=== PATIENT | female | born 1995 | race Caucasian/White ===

== ENCOUNTER 2017-07-09 21:01 | Outpatient (CLI) | payer BC | END 2017-07-10 07:09 | disposition home or self-care (01) | LOC: SLEEP 21:01 | PROVIDERS: ATTEND Registered Nurse | DX: G47.10 Hypersomnia, unspecified (principal); R06.83 Snoring; M79.671 Pain in right foot; M79.672 Pain in left foot; R53.83 Other fatigue | CPT/HCPCS: 95810 ==

== ENCOUNTER 2021-01-03 15:05 | Emergency (ER) | payer BC ==
[~2021-01-03] VITALS: Ht 175 cm; Wt 100.0 kg
[2021-01-03] MEDS ORDERED: LACTATED RINGERS 1,000 ML IV ONE ×2 (15:17→16:50)
--- NOTE | 2021-01-03 15:39 | ED Cough/URI ---
General Chief Complaint: General Problems/Pain Stated Complaint: COUGH/SOB/HEADACHE Source: patient Exam Limitations: no limitations History of Present Illness Date Seen by Provider: January 03, 2021 Time Seen by Provider: 15:15 Initial Comments Patient presents ER by private conveyance with chief complaint of cough, shortness of breath, body aches and malaise. She had her second dose of mode during vaccination December 06. She has no sick contacts no recent travel outside the [facility]. She has a sore throat. Her cough is nonproductive. No vomiting nausea or diarrhea. No fevers. She is been using multiple ezzp-fqk-nffnkgt medications without success. She has not had any today. She denies using any decongestants with pseudoephedrine or phenylephrine. She went to Dr. Calles's office and saw one of the practitioners who noted her heart rate was elevated a couple days ago and other than her scheduled medications she has not taking anything presently. She is not on antibiotics or steroids. She did not receive any particular testing that day. She denies smoking or using recreational drugs or stimulants. Allergies and Home Medications Allergies Coded Allergies: No Known Drug Allergies (Unverified , 01/03/21) Home Medications Albuterol Sulfate 1 Puff Puff, 2 PUFF IH Q4H PRN for COUGH 1 PUFF = 90 MCG Prescribed by: DOROTHEA HILLMAN on 01/03/21 9532 Patient Home Medication List Home Medication List Reviewed: Yes Review of Systems Review of Systems Constitutional: No chills, No diaphoresis EENTM: No ear discharge, No ear pain, No blurred vision Respiratory: No cough, No phlegm Gastrointestinal: No abdominal pain, No constipation, No diarrhea, No vomiting Genitourinary: No discharge, No dysuria Musculoskeletal: No back pain, No joint pain All Other Systems Reviewed Negative Unless Noted: Yes Past Jmxajif-Lqtuid-Jhyspm Hx Patient Social History Alcohol Use: Denies Use Smoking Status: Never a Smoker Physical Exam Vital Signs - First Documented 01/03/21 15:13 Temp 36.2 Pulse 142 Resp 22 B/P (MAP) 146/103 (117) Pulse Ox 100 Capillary Refill : Height: '" Weight: lbs. oz. kg; BMI Method: General Appearance: WD/WN, no apparent distress Eyes: Bilateral Eye Normal Inspection, Bilateral Eye PERRL, Bilateral Eye EOMI HEENT: PERRL/EOMI, TMs normal, pharynx normal Neck: full range of motion, normal inspection Respiratory: lungs clear, normal breath sounds, no respiratory distress, no accessory muscle use Cardiovascular: normal peripheral pulses, regular rate, rhythm, tachycardia Extremities: normal range of motion, non-tender, normal capillary refill Neurologic/Psychiatric: alert, oriented x 3 Skin: normal color, warm/dry Progress/Results/Core Measures Suspected Sepsis SIRS Temperature: Pulse: Respiratory Rate: Laboratory Tests 01/03/21 15:26: White Blood Count 10.8 Blood Pressure / Mean: Laboratory Tests 01/03/21 15:26: Creatinine 0.85, Platelet Count 344, Total Bilirubin 0.3 Results/Orders Lab Results Laboratory Tests Test 01/03/21 15:20 01/03/21 15:26 01/03/21 16:15 Range/Units SARS-CoV-2 RNA (RT-PCR) Not Detected Not Detecte White Blood Count 10.8 4.3-11.0 10^3/uL Red Blood Count 5.09 3.80-5.11 10^6/uL Hemoglobin 12.9 11.5-16.0 g/dL Hematocrit 42 35-52 % Mean Corpuscular Volume 83 80-99 fL Mean Corpuscular Hemoglobin 25 25-34 pg Mean Corpuscular Hemoglobin Concent 31 L 32-36 g/dL Red Cell Distribution Width 14.3 10.0-14.5 % Platelet Count 344 130-400 10^3/uL Mean Platelet Volume 10.1 9.0-12.2 fL Immature Granulocyte % (Auto) 0 % Neutrophils (%) (Auto) 59 42-75 % Lymphocytes (%) (Auto) 30 12-44 % Monocytes (%) (Auto) 7 0-12 % Eosinophils (%) (Auto) 4 0-10 % Basophils (%) (Auto) 1 0-10 % Neutrophils # (Auto) 6.4 1.8-7.8 10^3/uL Lymphocytes # (Auto) 3.3 1.0-4.0 10^3/uL Monocytes # (Auto) 0.7 0.0-1.0 10^3/uL Eosinophils # (Auto) 0.4 H 0.0-0.3 10^3/uL Basophils # (Auto) 0.1 0.0-0.1 10^3/uL Immature Granulocyte # (Auto) 0.0 0.0-0.1 10^3/uL Sodium Level 140 135-145 MMOL/L Potassium Level 3.7 3.6-5.0 MMOL/L Chloride Level 107 98-107 MMOL/L Carbon Dioxide Level 22 21-32 MMOL/L Anion Gap 11 5-14 MMOL/L Blood Urea Nitrogen 12 7-18 MG/DL Creatinine 0.85 0.60-1.30 MG/DL Estimat Glomerular Filtration Rate > 60 BUN/Creatinine Ratio 14 Glucose Level 90 70-105 MG/DL Calcium Level 9.3 8.5-10.1 MG/DL Corrected Calcium 9.3 8.5-10.1 MG/DL Total Bilirubin 0.3 0.1-1.0 MG/DL Aspartate Amino Transf (AST/SGOT) 15 5-34 U/L Alanine Aminotransferase (ALT/SGPT) 17 0-55 U/L Alkaline Phosphatase 82 40-136 U/L C-Reactive Protein High Sensitivity 0.66 H 0.00-0.50 MG/DL Total Protein 8.1 6.4-8.2 GM/DL Albumin 4.0 3.2-4.5 GM/DL Urine Color YELLOW Urine Clarity CLEAR Urine pH 5.5 5-9 Urine Specific [place] >=1.030 1.016-1.022 Urine Protein NEGATIVE NEGATIVE Urine Glucose (UA) NEGATIVE NEGATIVE Urine Ketones NEGATIVE NEGATIVE Urine Nitrite NEGATIVE NEGATIVE Urine Bilirubin NEGATIVE NEGATIVE Urine Urobilinogen 0.2 < = 1.0 MG/DL Urine Leukocyte Esterase TRACE H NEGATIVE Urine RBC (Auto) NEGATIVE NEGATIVE Urine RBC 2-5 H /HPF Urine WBC 2-5 /HPF Urine Squamous Epithelial Cells 5-10 /HPF Urine Crystals NONE /LPF Urine Bacteria FEW H /HPF Urine Casts NONE /LPF Urine Mucus NEGATIVE /LPF Urine Culture Indicated YES Urine Opiates Screen NEGATIVE NEGATIVE Urine Oxycodone Screen NEGATIVE NEGATIVE Urine Methadone Screen NEGATIVE NEGATIVE Urine Propoxyphene Screen NEGATIVE NEGATIVE Urine Barbiturates Screen NEGATIVE NEGATIVE Ur Tricyclic Antidepressants Screen POSITIVE H NEGATIVE Urine Phencyclidine Screen NEGATIVE NEGATIVE Urine Amphetamines Screen NEGATIVE NEGATIVE Urine Methamphetamines Screen NEGATIVE NEGATIVE Urine Benzodiazepines Screen NEGATIVE NEGATIVE Urine Cocaine Screen NEGATIVE NEGATIVE Urine Cannabinoids Screen NEGATIVE NEGATIVE Micro Results Microbiology 01/03/21 Influenza Types A,B Antigen (PEBBLES) - Final, Complete My Orders Orders - KADY,DOROTHEA J Lactated Ringers (Lr 1000 Ml Iv Solution (01/03/21 15:17) Covid 19 Inhouse Test (01/03/21 15:21) Influenza A And B Antigens (01/03/21 15:21) Chest 1 View, Ap/Pa Only (01/03/21 15:21) Cbc With Automated Diff (01/03/21 15:21) Comprehensive Metabolic Panel (01/03/21 15:21) Hs C Reactive Protein (01/03/21 15:21) Ua Culture If Indicated (01/03/21 15:21) Urine Bedside (01/03/21 15:21) Ed Iv/Invasive Line Start (01/03/21 15:21) Drug Screen Stat (Urine) (01/03/21 15:39) Urine Culture (01/03/21 16:15) Lactated Ringers (Lr 1000 Ml Iv Solution (01/03/21 16:50) Medications Given in ED Current Medications Medications Dose Ordered Sig/Amairani Route Start Time Stop Time Status Last Admin Dose Admin Lactated Ringer's 1,000 ml @ ud STK-MED ONCE IV 01/03/21 15:17 01/03/21 15:26 DC 01/03/21 15:35 1,000 MLS/HR Lactated Ringer's 1,000 ml @ ud STK-MED ONCE IV 01/03/21 16:50 01/03/21 16:58 DC 01/03/21 17:01 1,000 MLS/HR Vital Signs/I&O 01/03/21 15:13 Temp 36.2 Pulse 142 Resp 22 B/P (MAP) 146/103 (117) Pulse Ox 100 Capillary Refill : Progress Note #1: Time: 15:38 Progress Note Because of her persistent tachycardia 6 days from start and she looks little dry we will check some fluids go ahead and check her for COVID-19 and influenza. Chest x-ray and basic labs. She denies use of stimulants so we will do a drug screen just to rule out that as a source of her persistent tachycardia. Progress Note #2: Time: 16:45 Progress Note Patient's heart rate is down to 103 and she is resting peacefully. She has received her fluids. Were going to allow her to go home with a nonspecific viral infection and return precautions. Diagnostic Imaging Diagonstic Imaging: Xray Plain Films/CT/US/NM/MRI: chest Comments NAME: ALBERTA GALEANA [facility] REC#: [id number] PT STATUS: REG ER : 1995 PHYSICIAN: DOROTHEA HILLMAN MD ADMIT DATE: 01/03/21/ER Signed Date of Exam:01/03/21 CHEST 1 VIEW, AP/PA ONLY EXAMINATION: Chest 1 view HISTORY: Cough and shortness breath COMPARISON: None available. FINDINGS: The lungs are clear without edema or pneumonia. No pleural effusion or pneumothorax. Heart size is normal. IMPRESSION: 1. Clear lungs. Dictated by: Dictated on workstation # [id number] Dict: 01/03/211627 Trans: 01/03/211628 [facility] [id number] Interpreted by: JOSÉ LANDRY MD Electronically signed by: JOSÉ LANDRY MD 01/03/21 1629 Reviewed: Reviewed by Me Departure Impression Primary Impression: Viral upper respiratory tract infection Additional Impression: Mild dehydration Disposition: 01 HOME, SELF-CARE Condition: Stable Departure-Patient Inst. Decision time for Depature: 16:46 Referrals: NO,LOCAL PHYSICIAN (PCP/Family) Primary Care Physician Patient Instructions: Dehydration, Adult ED, Viral Upper Respiratory Infection, Adult (DC) Add. Discharge Instructions: Drink plenty of fluids. Tea with honey and lemon can be helpful for your sore throat. Salt water gargles can be helpful for sore throat. Avoid medications with phenylephrine or pseudoephedrine as this may increase your heart rate. Expect symptoms to resolve over the next 3 to 5 days. If you are still having symptoms he can follow-up with your primary care doctor for reevaluation. Return to the ER promptly if you are having severe shortness of air or other worrisome symptoms. If having coughing fits, shortness of air or wheezing you can do 2 puffs of ProAir/albuterol through the spacer every 4 hours as necessary. All discharge instructions reviewed with patient and/or family. Voiced understanding. Scripts Albuterol Sulfate (PROAIR HFA) 1 Puff Puff 2 PUFF IH Q4H PRN for COUGH, #1 EA 0 Refills 1 PUFF = 90 MCG Prov: DOROTHEA HILLMAN 01/03/21 Work/School Note: Work Release Form Date Seen in the Emergency Department: January 03, 2021 Return to Work: January 07, 2021 Restrictions: No Restrictions Other Restrictions Listed Below: May return to work when symptom-free for 24 hours DOROTHEA HILLMAN January 03, 2021 15:39
[2021-01-03 15:46] LABS: BASOPHILS # (AUTO) 0.1 10^3/uL (0.0-0.1); BASOPHILS % (AUTO) 1 % (0-10); EOSINOPHILS # (AUTO) 0.4 10^3/uL (0.0-0.3); EOSINOPHILS % (AUTO) 4 % (0-10); HEMATOCRIT 42 % (35-52); HEMOGLOBIN 12.9 g/dL (11.5-16.0); LYMPHOCYTES # (AUTO) 3.3 10^3/uL (1.0-4.0); LYMPHOCYTES % (AUTO) 30 % (12-44); MEAN CORPUSCULAR HEMOGLOBIN 25 pg (25-34); MEAN CORPUSCULAR HGB CONC 31 g/dL (32-36); MEAN CORPUSCULAR VOLUME 83 fL (80-99); MEAN PLATELET VOLUME 10.1 fL (9.0-12.2); MONOCYTES # (AUTO) 0.7 10^3/uL (0.0-1.0); MONOCYTES % (AUTO) 7 % (0-12); NEUTROPHILS # (AUTO) 6.4 10^3/uL (1.8-7.8); NEUTROPHILS % (AUTO) 59 % (42-75); PLATELET COUNT 344 10^3/uL (130-400); WHITE BLOOD COUNT 10.8 10^3/uL (4.3-11.0)
[2021-01-03 15:58] LABS: CHLORIDE 107 MMOL/L (98-107); POTASSIUM 3.7 MMOL/L (3.6-5.0); SODIUM 140 MMOL/L (135-145)
[2021-01-03 15:59] LABS: CALCIUM 9.3 MG/DL (8.5-10.1)
[2021-01-03 16:00] LABS: GLUCOSE 90 MG/DL (70-105)
[2021-01-03 16:01] LABS: TOTAL PROTEIN 8.1 GM/DL (6.4-8.2)
[2021-01-03 16:02] LABS: BILIRUBIN,TOTAL 0.3 MG/DL (0.1-1.0); CARBON DIOXIDE 22 MMOL/L (21-32)
[2021-01-03 16:04] LABS: ALKALINE PHOSPHATASE 82 U/L (40-136); CREATININE SERUM 0.85 MG/DL (0.60-1.30); GFR ESTIMATED > 60
[2021-01-03 16:05] LABS: BUN/CREATININE RATIO 14
[2021-01-03 16:07] LABS: ALANINE AMINOTRANSFERASE 17 U/L (0-55)
[2021-01-03 16:24] LABS: BILIRUBIN,URINE NEGATIVE (NEGATIVE); CLARITY,URINE CLEAR; COLOR,URINE YELLOW; GLUCOSE, URINE (UA) NEGATIVE (NEGATIVE); KETONES,URINE NEGATIVE (NEGATIVE); LEUKOCYTE ESTERASE ,URINE TRACE (NEGATIVE); NITRITE,URINE NEGATIVE (NEGATIVE); PH,URINE 5.5 (5-9); PROTEIN,URINE NEGATIVE (NEGATIVE)
--- NOTE | 2021-01-03 16:30 | Diagnostic Imaging Report ---
EXAMINATION: Chest 1 view HISTORY: Cough and shortness breath COMPARISON: None available. FINDINGS: The lungs are clear without edema or pneumonia. No pleural effusion or pneumothorax. Heart size is normal. IMPRESSION: 1. Clear lungs. Dictated by: Dictated on workstation # [id number]
[2021-01-03 16:32] LABS: BACTERIA,URINE FEW /HPF
[2021-01-03 16:36] LABS: AMPHETAMINE SCREEN, URINE NEGATIVE (NEGATIVE); BARBITURATE SCREEN URINE NEGATIVE (NEGATIVE); BENZODIAZEPINES SCREEN URINE NEGATIVE (NEGATIVE); CANNABINOID SCREEN, URINE NEGATIVE (NEGATIVE); COCAINE SCREEN URINE NEGATIVE (NEGATIVE); METHADONE STAT NEGATIVE (NEGATIVE); METHAMPHETAMINE SCREEN URINE S NEGATIVE (NEGATIVE); OPIATE SCREEN URINE NEGATIVE (NEGATIVE); OXYCODONE STAT NEGATIVE (NEGATIVE); PROPOXYPHENE STAT NEGATIVE (NEGATIVE); TRICYCLIC ANTIDEPRESSANTS SCRE POSITIVE (NEGATIVE)
[2021-01-03] MEDS ORDERED: RT-ALBUINH IH (16:55)
[2021-01-03 18:06] VITALS: BP 140/88
== END 2021-01-03 18:25 | disposition home or self-care (01) ==
LOC: EDUNIT# 15:05 → ER 15:06
DX: J06.9 Acute upper respiratory infection, unspecified (principal); E86.0 Dehydration; R00.0 Tachycardia, unspecified
CPT/HCPCS: 36415; 71045; 80053; 80306; 81000; 84703; 85025; 86141; 87088; 87636; 87804

== ENCOUNTER → 2021-08-19 | Outpatient (CLI) | payer BC ==
[~2021-08-19] MED LIST: RT-ALBUINH IH
--- NOTE | 2021-08-19 15:14 | Diagnostic Imaging Report ---
INDICATION: Bilateral flank pain. COMPARISON: None. FINDINGS: A single frontal supine radiographic view of the abdomen was obtained and demonstrates nondistended loops of small bowel. There is no large collection of free intraperitoneal air. No unexpected extraosseous calcifications or radiopaque foreign bodies are seen. The osseous structures show age-related degenerative changes. IMPRESSION: Nonobstructed small bowel gas pattern. Dictated by: Dictated on workstation # [id number]
== END ==
LOC: RAD 14:42
PROVIDERS: ATTEND Family Medicine
DX: R10.9 Unspecified abdominal pain (principal); R31.9 Hematuria, unspecified
CPT/HCPCS: 74018

== ENCOUNTER → 2021-08-20 | Outpatient (CLI) | payer BC ==
--- NOTE | 2021-08-20 13:26 | Diagnostic Imaging Report ---
EXAMINATION: CT abdomen and pelvis without contrast. TECHNIQUE: Multiple contiguous axial images were obtained through the abdomen and pelvis without the use of intravenous contrast. All CT scans use one or more of the following dose optimizing techniques: automated exposure control, MA and/or KvP adjustment based on patient size and exam type or iterative reconstruction. HISTORY: Hematuria and flank pain. COMPARISON: None available. FINDINGS: Limited views of the lower thorax are unremarkable. The liver is normal without focal lesion. There is no biliary ductal dilation. Gallbladder is normal. Pancreas is normal. Spleen is normal. Adrenal glands are normal. There are a few nonobstructing 2 mm stones in the right kidney. No ureteral stones. No suspicious renal lesions. There is no hydronephrosis. Urinary bladder is normal. There is a right adnexal cyst measuring less than 3 cm. Bowel is normal in caliber without obstruction or inflammation. No free fluid or air. No abdominal or pelvic lymphadenopathy. Aorta is normal in caliber without aneurysm. There are no suspicious osseus lesions. IMPRESSION: There are two nonobstructing 2 mm stones in the right kidney. No ureteral stones. Dictated by: Dictated on workstation # [id number]
== END ==
LOC: RAD 13:00
PROVIDERS: ATTEND Nurse Practitioner Family
DX: N20.0 Calculus of kidney (principal)
CPT/HCPCS: 74176

== ENCOUNTER → 2021-08-22 | Outpatient (CLI) | payer BC ==
--- NOTE | 2021-08-22 13:36 | Diagnostic Imaging Report ---
EXAMINATION: Abdomen 1 view HISTORY: FLANK PAIN HEMATURIA COMPARISON: None available. FINDINGS: There is a moderate amount of gas and stool throughout the colon. Nonobstructive bowel gas pattern. No radiopaque foreign body. The lung bases are clear. The osseous structures are intact. IMPRESSION: Moderate stool burden without other acute abnormality in the abdomen. Dictated by: Dictated on workstation # [id number]
== END ==
LOC: RAD 12:33
PROVIDERS: ATTEND Family Medicine
DX: R31.9 Hematuria, unspecified (principal); R10.9 Unspecified abdominal pain
CPT/HCPCS: 74018

== ENCOUNTER 2022-01-20 10:11 | Emergency (ER) | payer BC ==
[~2022-01-20] VITALS: Ht 170.2 cm; Wt 113.4 kg
--- NOTE | 2022-01-20 10:51 | ED GU-Female ---
General Chief Complaint: - Reproductive Stated Complaint: BACK PAIN Source: patient Exam Limitations: no limitations History of Present Illness Date Seen by Provider: January 20, 2022 Time Seen by Provider: 10:49 Initial Comments To ER by private vehicle with reports of sudden onset of right flank pain that began around 7 or 730 this morning. History of kidney stones. She did have some nausea initially. Timing/Duration: this morning Severity/Quality: moderate, severe Location: right flank Radiation: none Activities at Onset: none Prior Genitourinary Problems: none Associated Symptoms: denies symptoms Allergies and Home Medications Allergies Coded Allergies: oxycodone (Verified Allergy, Unknown, 01/20/22) Patient Home Medication List Home Medication List Reviewed: Yes Albuterol Sulfate (Proair Hfa) 1 Puff Puff, 2 PUFF IH Q4H PRN for COUGH Prescribed by: DOROTHEA HILLMAN on 01/03/21 1655 Review of Systems Review of Systems Constitutional: see HPI; No chills, No fever EENTM: see HPI Respiratory: no symptoms reported Cardiovascular: no symptoms reported Genitourinary: see HPI Musculoskeletal: no symptoms reported Skin: no symptoms reported Psychiatric/Neurological: No Symptoms Reported Endocrine: No Symptoms Reported Past Xapexip-Xidhac-Edmakx Hx Seasonal Allergies Seasonal Allergies: No Past Medical History Surgeries: Yes Adenoidectomy, Orthopedic, Tonsillectomy Respiratory: No Cardiac: No Neurological: No Genitourinary: No Gastrointestinal: Yes Gastroesophageal Reflux Musculoskeletal: No Endocrine: No HEENT: No Cancer: No Depression Integumentary: No Physical Exam Vital Signs Vital Signs - First Documented 01/20/22 10:40 Temp 36.9 Pulse 93 Resp 16 B/P (MAP) 157/94 (115) Pulse Ox 99 O2 Delivery Room Air Capillary Refill : Height, Weight, BMI Height: '" Weight: lbs. oz. kg; 32.00 BMI Method: General Appearance: WD/WN, no apparent distress, obese Neck: non-tender, full range of motion Respiratory: no respiratory distress, no accessory muscle use Gastrointestinal: normal bowel sounds, non tender, soft Back: CVA tenderness (R) Extremities: normal range of motion, non-tender Neurologic/Psychiatric: alert, normal mood/affect, oriented x 3 Skin: normal color, warm/dry Progress/Results/Core Measures Suspected Sepsis SIRS Temperature: Pulse: Respiratory Rate: Laboratory Tests 01/20/22 11:05: White Blood Count 12.1H Blood Pressure / Mean: Laboratory Tests 01/20/22 11:05: Creatinine 0.81, Platelet Count 349, Total Bilirubin 0.3 Results/Orders Lab Results Laboratory Tests Test 01/20/22 11:05 01/20/22 11:40 Range/Units White Blood Count 12.1 H 4.3-11.0 10^3/uL Red Blood Count 5.37 H 3.80-5.11 10^6/uL Hemoglobin 13.6 11.5-16.0 g/dL Hematocrit 44 35-52 % Mean Corpuscular Volume 81 80-99 fL Mean Corpuscular Hemoglobin 25 25-34 pg Mean Corpuscular Hemoglobin Concent 31 L 32-36 g/dL Red Cell Distribution Width 14.6 H 10.0-14.5 % Platelet Count 349 130-400 10^3/uL Mean Platelet Volume 9.4 9.0-12.2 fL Immature Granulocyte % (Auto) 1 % Neutrophils (%) (Auto) 79 H 42-75 % Lymphocytes (%) (Auto) 15 12-44 % Monocytes (%) (Auto) 5 0-12 % Eosinophils (%) (Auto) 1 0-10 % Basophils (%) (Auto) 0 0-10 % Neutrophils # (Auto) 9.5 H 1.8-7.8 10^3/uL Lymphocytes # (Auto) 1.9 1.0-4.0 10^3/uL Monocytes # (Auto) 0.6 0.0-1.0 10^3/uL Eosinophils # (Auto) 0.1 0.0-0.3 10^3/uL Basophils # (Auto) 0.0 0.0-0.1 10^3/uL Immature Granulocyte # (Auto) 0.1 0.0-0.1 10^3/uL Sodium Level 138 135-145 MMOL/L Potassium Level 4.6 3.6-5.0 MMOL/L Chloride Level 107 98-107 MMOL/L Carbon Dioxide Level 19 L 21-32 MMOL/L Anion Gap 12 5-14 MMOL/L Blood Urea Nitrogen 11 7-18 MG/DL Creatinine 0.81 0.60-1.30 MG/DL Estimat Glomerular Filtration Rate 101 BUN/Creatinine Ratio 14 Glucose Level 102 70-105 MG/DL Calcium Level 9.7 8.5-10.1 MG/DL Corrected Calcium 9.5 8.5-10.1 MG/DL Total Bilirubin 0.3 0.1-1.0 MG/DL Aspartate Amino Transf (AST/SGOT) 12 5-34 U/L Alanine Aminotransferase (ALT/SGPT) 15 0-55 U/L Alkaline Phosphatase 74 40-136 U/L Total Protein 8.2 6.4-8.2 GM/DL Albumin 4.2 3.2-4.5 GM/DL Serum Test, Qualitative NEGATIVE NEGATIVE Urine Color ORANGE Urine Clarity CLEAR Urine pH 5.5 5-9 Urine Specific [place] 1.020 1.016-1.022 Urine Protein 1+ H NEGATIVE Urine Glucose (UA) TRACE H NEGATIVE Urine Ketones NEGATIVE NEGATIVE Urine Nitrite POSITIVE H NEGATIVE Urine Bilirubin NEGATIVE NEGATIVE Urine Urobilinogen 1.0 < = 1.0 MG/DL Urine Leukocyte Esterase TRACE H NEGATIVE Urine RBC (Auto) 3+ H NEGATIVE Urine RBC 10-25 H /HPF Urine WBC 0-2 /HPF Urine Squamous Epithelial Cells 5-10 /HPF Urine Crystals NONE /LPF Urine Bacteria FEW H /HPF Urine Casts NONE /LPF Urine Mucus SMALL H /LPF Urine Culture Indicated YES My Orders Orders - PRESLEY JULIO APRN Abdomen/Kub 1view (01/20/22 10:46) Ct Abd/Pelvis Wo(Kidney Stone) (01/20/22 10:46) Cbc With Automated Diff (01/20/22 10:46) Comprehensive Metabolic Panel (01/20/22 10:46) Ed Iv/Invasive Line Start (01/20/22 10:46) Hcg,Qualitative Serum (01/20/22 10:46) Ketorolac Injection (Toradol Injection) (01/20/22 11:00) Ondansetron Injection (Zofran Injectio (01/20/22 11:00) Ua Culture If Indicated (01/20/22 11:14) Fentanyl Inj (Sublimaze Injection) (01/20/22 12:00) Urine Culture (01/20/22 11:40) Us Non Ob Pelvis Comp/Transvag (01/20/22 11:46) Medications Given in ED Current Medications Medications Dose Ordered Sig/Amairani Route Start Time Stop Time Status Last Admin Dose Admin Fentanyl Citrate 50 mcg ONCE ONCE IVP 01/20/22 12:00 01/20/22 12:01 DC 01/20/22 12:00 50 MCG Ketorolac Tromethamine 15 mg ONCE ONCE IVP 01/20/22 11:00 01/20/22 11:01 DC 01/20/22 11:05 15 MG Ondansetron HCl 8 mg ONCE ONCE IVP 01/20/22 11:00 01/20/22 11:01 DC 01/20/22 11:04 8 MG Vital Signs/I&O 01/20/22 10:40 Temp 36.9 Pulse 93 Resp 16 B/P (MAP) 157/94 (115) Pulse Ox 99 O2 Delivery Room Air Capillary Refill : Departure Impression Primary Impression: Right ovarian cyst Disposition: HOME, SELF-CARE Condition: Stable Departure-Patient Inst. Decision time for Depature: 10:51 Referrals: LOLIS CALLES MD (PCP/Family) Primary Care Physician Patient Instructions: Kidney Stone, Adult ED Add. Discharge Instructions: Pain medication as needed in the meantime. Follow-up with Dr. Calles next week. Return to ER for any worsening pain. All discharge instructions reviewed with patient and/or family. Voiced understanding. PRESLEY JULIO APRN January 20, 2022 10:51
[2022-01-20] MEDS ORDERED: ONDANSETRON 4 MG/2 ML (SDV) Z0FRAN IVP ONE (11:00)
[2022-01-20] MEDS ORDERED: KETOROLAC 30 MG/ML VIAL IVP ONE (11:00)
[2022-01-20 11:11] LABS: BASOPHILS % (AUTO) 0 % (0-10); EOSINOPHILS # (AUTO) 0.1 10^3/uL (0.0-0.3); EOSINOPHILS % (AUTO) 1 % (0-10); HEMATOCRIT 44 % (35-52); HEMOGLOBIN 13.6 g/dL (11.5-16.0); LYMPHOCYTES # (AUTO) 1.9 10^3/uL (1.0-4.0); LYMPHOCYTES % (AUTO) 15 % (12-44); MEAN CORPUSCULAR HEMOGLOBIN 25 pg (25-34); MEAN CORPUSCULAR HGB CONC 31 g/dL (32-36); MEAN CORPUSCULAR VOLUME 81 fL (80-99); MEAN PLATELET VOLUME 9.4 fL (9.0-12.2); MONOCYTES # (AUTO) 0.6 10^3/uL (0.0-1.0); MONOCYTES % (AUTO) 5 % (0-12); NEUTROPHILS # (AUTO) 9.5 10^3/uL (1.8-7.8); NEUTROPHILS % (AUTO) 79 % (42-75); PLATELET COUNT 349 10^3/uL (130-400); WHITE BLOOD COUNT 12.1 10^3/uL (4.3-11.0)
[2022-01-20 11:27] LABS: ALBUMIN 4.2 GM/DL (3.2-4.5)
[2022-01-20 11:28] LABS: POTASSIUM 4.6 MMOL/L (3.6-5.0)
--- NOTE | 2022-01-20 11:28 | Diagnostic Imaging Report ---
PROCEDURE: CT urinary tract, rule out kidney stone. TECHNIQUE: Multiple contiguous axial images were obtained through the abdomen and pelvis without the use of intravenous contrast. Auto Exposure Controls were utilized during the CT exam to meet ALARA standards for radiation dose reduction. INDICATION: Right-sided flank pain. Patient has history of kidney stones. Correlation is made with prior CT from 08/20/2021. The lung bases are clear. Liver and gallbladder are unremarkable. There is no biliary duct dilatation. The pancreas and spleen are unremarkable. No adrenal mass is detected. No definite renal calculi are seen on today's study. No ureteral calculi or hydronephrosis is identified. Aorta is nonaneurysmal. Bowel loops appear normal in caliber. There is no obstruction. There is a cyst in the right adnexa measuring approximate 3.8 cm and likely ovarian. The bladder and uterus are unremarkable. No inflammatory changes are seen. IMPRESSION: 1. No evidence of urinary tract calculi or obstruction. 2. Right adnexal cyst, likely ovarian. Dictated by: Dictated on workstation # [id number]
[2022-01-20 11:29] LABS: CALCIUM 9.7 MG/DL (8.5-10.1)
[2022-01-20 11:30] LABS: TOTAL PROTEIN 8.2 GM/DL (6.4-8.2)
--- NOTE | 2022-01-20 11:30 | Diagnostic Imaging Report ---
INDICATION: Right-sided flank pain. Time of Exam: 11:15 AM Bowel gas pattern is unremarkable. No definite radiopaque urinary tract calculi are seen. No acute features detected. IMPRESSION: No acute abnormality is detected. Dictated by: Dictated on workstation # [id number]
[2022-01-20 11:32] LABS: BILIRUBIN,TOTAL 0.3 MG/DL (0.1-1.0)
[2022-01-20 11:33] LABS: CREATININE SERUM 0.81 MG/DL (0.60-1.30)
[2022-01-20 11:47] LABS: BILIRUBIN,URINE NEGATIVE (NEGATIVE); CLARITY,URINE CLEAR; COLOR,URINE ORANGE; GLUCOSE, URINE (UA) TRACE (NEGATIVE); KETONES,URINE NEGATIVE (NEGATIVE); LEUKOCYTE ESTERASE ,URINE TRACE (NEGATIVE); NITRITE,URINE POSITIVE (NEGATIVE); PH,URINE 5.5 (5-9); PROTEIN,URINE 1+ (NEGATIVE)
[2022-01-20 11:53] LABS: BACTERIA,URINE FEW /HPF; WBC,URINE 0-2 /HPF
[2022-01-20] MEDS ORDERED: fentaNYL INJ 100 MCG/2 ML AMP IVP ONE (12:00)
[2022-01-20 13:11] VITALS: BP 147/85
--- NOTE | 2022-01-20 13:37 | Diagnostic Imaging Report ---
PROCEDURE: Pelvic comp/transvaginal sonogram. TECHNIQUE: Complete transabdominal and transvaginal pelvic ultrasound was performed. In addition, limited pelvic Doppler was performed. INDICATION: Back pain. Correlation is made with CT study performed earlier same day. Uterus is anteverted measuring 5.9 x 2.9 x 4.7 cm. Endometrium is 6 mm in thickness. No myometrial mass is detected. Right ovary measures 3.3 x 1.9 x 2.5 cm and the left ovary measures 2.9 x 1.7 x 2.4 cm. Right ovary does contain a cyst measuring 3.9 x 2.9 x 2.9 cm, likely accounting for the CT abnormality. There is blood flow to both ovaries. No free fluid is seen. IMPRESSION: Simple cyst right ovary 3.9 cm in size and likely accounting for the CT abnormality. No other abnormality is detected. Dictated by: Dictated on workstation # [id number]
== END 2022-01-20 13:10 | disposition home or self-care (01) ==
LOC: EDUNIT# 10:11 → ER 10:12
DX: N83.201 Unspecified ovarian cyst, right side (principal); Z87.442 Personal history of urinary calculi; Z32.02 Encounter for pregnancy test, result negative
CPT/HCPCS: 36415; 74018; 74176; 76830; 76856; 80053; 81000; 84703; 85025; 87088